=== PATIENT | female | born 2000 | race African-American/Black ===

== ENCOUNTER 2024-12-04 11:47 | Emergency (ER) | payer OTHER ==
[2024-12-04 14:47] LABS: Glucose, Urine (Dipstick) Normal (Negative); Leukocyte 500 (Negative); Protein, Urine (Dipstick) 15 mg/dl (Neg-Trace); Specific Gravity, Urine 1.015 (1.005-1.030)
[2024-12-04] MEDS ORDERED: cefTRIAXone (ROCEPHIN) 1 GM VIAL ONE (15:06)
[2024-12-04 15:48] LABS: CAUTI Indications for Culture Pelvic or flank pain
[2024-12-04 15:49] LABS: Bacteria/HPF 2+ HPF (None Seen); Mucous/LPF 2+ LPF (<2+)
[2024-12-04 15:52] LABS: Urine Culture Reflex Yes Yes
[2024-12-05 10:22] LABS: GC by PCR, Vaginal Swab Not Detected (NotDetected)
== END 2024-12-04 15:41 | disposition home or self-care (01) ==
LOC: CSHERS 11:47
DX: N76.0 Acute vaginitis (principal); E66.01 Morbid (severe) obesity due to excess calories; Z79.899 Other long term (current) drug therapy
CPT/HCPCS: 81001; 87086; 87480; 87510; 87591; 87660; 96372; 99283; J0696